=== PATIENT | female | born 1985 ===

== ENCOUNTER 2023-05-04 00:22 | Emergency (ER) | payer MEDICAID, OTHER ==
[~2023-05-04] VITALS: Ht 177.8 cm; Wt 86.3 kg
[2023-05-04 01:04] VITALS: BP 144/82; PULSE 89; RESP 20; TEMP 98.1; O2SAT 95
[2023-05-04] MEDS ORDERED: AMOX875T4 PO ×3 (01:12→01:53)
[2023-05-04] MEDS ORDERED: IBUP-1455 PO ×3 (01:12→01:53)
[2023-05-04] MEDS ORDERED: KETOROLAC TROMETH 30 MG/ML 1ML VIAL IM ONE (01:15)
== END 2023-05-04 01:25 | disposition home or self-care (01) ==
LOC: ER 00:22
DX: K02.9 Dental caries, unspecified (principal)
CPT/HCPCS: 96372; 99283; J1885